=== PATIENT | male | born 1955 | race Caucasian/White ===

== ENCOUNTER 2016-11-01 07:58 | Emergency (ER) | payer OTHER ==
[2016-11-01] MEDS ORDERED: NITROGLYCERIN 0.4 MG TAB SL ONE (08:02)
[2016-11-01] MEDS ORDERED: ASPIRIN 81 MG CHEWABLE CTB ONE (08:02)
[2016-11-01] MEDS: SODIUM CHLORIDE 0.9% 1000ML 1,000 ML IV SCH ×3 (08:10→10:15)
[2016-11-01] MEDS ORDERED: ASPIRIN 81 MG CHEWABLE CTB PO ONE (08:13)
[2016-11-01] MEDS ORDERED: NITROGLYCERIN 0.4 MG TAB SL PRN (08:14)
[2016-11-01] MEDS ORDERED: PANTOPRAZOLE SODIUM 40 MG VIAL 80 MG in SODIUM CHLORIDE 0.9% 100 ML 80 ML IV ONE (08:15)
[2016-11-01 08:16] LABS: BASOPHILS % (AUTO) 1 % (0-3); EOSINOPHILS % (AUTO) 3 % (0-9); HEMATOCRIT 44 % (39-53); MEAN CORPUSCULAR HGB CONC 35.5 gm/dl (32.0-36.0); MEAN CORPUSCULAR VOLUME 88 fL (80-100); MONOCYTES % (AUTO) 11.8 % (0-12); NEUTROPHILS % (AUTO) 53.9 % (37-80)
[2016-11-01] MEDS ORDERED: ALUMINUM/MAGNESIUM 30 ML SUS PO ONE (08:17)
[2016-11-01] MEDS ORDERED: LIDOCAINE HCL 2% (VISCOUS) 20 ML SOL MT ONE (08:18)
[2016-11-01] MEDS ORDERED: PANTOPRAZOLE SODIUM 40 MG/10 ML PDS IV ONE (08:29)
[2016-11-01 08:30] LABS: CALCIUM 8.9 mg/dl (8.5-10.1); GLOM FILT RATE 81 mL/min (>60); POTASSIUM 3.9 mMol/L (3.5-5.1); SODIUM 139 mMol/L (136-145)
[2016-11-01] MEDS ORDERED: LIDOCAINE HCL 2% (VISCOUS) 20 ML SOL ONE (08:30)
[2016-11-01] MEDS ORDERED: ALUMINUM/MAGNESIUM 30 ML SUS ONE (08:30)
[2016-11-01] MEDS ORDERED: PANTOPRAZOLE SODIUM 40 MG/10 ML PDS ONE (08:30)
[2016-11-01 08:51] VITALS: TEMP 98.5
[2016-11-01] MEDS ORDERED: KETOROLAC TROMETHAMINE 30 MG/ML SOL IV ONE (08:54)
[2016-11-01] MEDS ORDERED: KETOROLAC TROMETHAMINE 30 MG/ML SOL ONE (08:56)
[2016-11-01 10:44] VITALS: BP 106/68; PULSE 58; RESP 20; O2SAT 99
== END 2016-11-01 10:26 | disposition home or self-care (01) ==
LOC: ED 07:58
DX: R07.1 Chest pain on breathing (principal); M94.0 Chondrocostal junction syndrome [Tietze]; K21.9 Gastro-esophageal reflux disease without esophagitis; S29.011A Strain of muscle and tendon of front wall of thorax, initial encounter; E66.9 Obesity, unspecified; Z68.42 Body mass index [BMI] 45.0-49.9, adult; E78.5 Hyperlipidemia, unspecified; Z82.49 Family history of ischemic heart disease and other diseases of the circulatory system
CPT/HCPCS: 99285 ×3; 80048; 82550; 83880; 84484; 85025; 93005; J1885; 71020